=== PATIENT | male | born 1990 | race Caucasian/White ===

== ENCOUNTER 2018-05-26 14:59 | Emergency (ER) | payer OTHER ==
[~2018-05-26] VITALS: Ht 175.3 cm; Wt 113.4 kg
[2018-05-26 15:11] VITALS: Ht 175.3 cm; Wt 113.4 kg
[2018-05-26 16:32] VITALS: BP 144/83
== END 2018-05-26 16:32 | disposition home or self-care (01) ==
LOC: ED 14:59
DX: S86.811A Strain of other muscle(s) and tendon(s) at lower leg level, right leg, initial encounter (principal); Y93.01 Activity, walking, marching and hiking; Y93.89 Activity, other specified; Y92.89 Other specified places as the place of occurrence of the external cause; Y99.8 Other external cause status
CPT/HCPCS: J1885; Q0092

== ENCOUNTER 2018-12-22 19:48 | Emergency (ER) | payer OTHER ==
[~2018-12-22] VITALS: Ht 175.3 cm; Wt 117.5 kg
[2018-12-22 20:45] VITALS: BP 141/95; Ht 175.3 cm; Wt 117.5 kg
== END 2018-12-22 21:43 | disposition home or self-care (01) ==
LOC: ED 19:48
DX: S83.91XA Sprain of unspecified site of right knee, initial encounter (principal); X58.XXXA Exposure to other specified factors, initial encounter; Y93.73 Activity, racquet and hand sports; Y92.318 Other athletic court as the place of occurrence of the external cause; Y99.8 Other external cause status